=== PATIENT | female | born 1995 | race Caucasian/White ===

== ENCOUNTER 2019-09-17 12:33 | Emergency (ER) | payer OTHER ==
[~2019-09-17] VITALS: Ht 160 cm; Wt 64.4 kg
[2019-09-17] MEDS ORDERED: NIVA-PLUS TABL1 EACH (12:56)
== END 2019-09-17 18:14 | disposition home or self-care (01) ==
LOC: ER 12:33
DX: O26.891 Other specified pregnancy related conditions, first trimester (principal); K52.89 Other specified noninfective gastroenteritis and colitis; O21.8 Other vomiting complicating pregnancy; O36.80X1 Pregnancy with inconclusive fetal viability, fetus 1

== ENCOUNTER 2019-12-10 15:33 | Emergency (ER) | payer OTHER ==
[~2019-12-10] VITALS: Ht 160 cm; Wt 68.0 kg
[~2019-12-10 15:33] MED LIST: NIVA-PLUS TABL1 EACH
== END 2019-12-10 19:33 | disposition home or self-care (01) ==
LOC: ER 15:33
DX: O26.892 Other specified pregnancy related conditions, second trimester (principal); R10.2 Pelvic and perineal pain; Z34.02 Encounter for supervision of normal first pregnancy, second trimester

== ENCOUNTER 2020-03-07 17:14 | Outpatient (CLI) | payer OTHER ==
[2020-03-07] MEDS ORDERED: ACIDO FOLICO (18:21)
== END 2020-03-08 10:35 | disposition home or self-care (01) ==
LOC: OBS/DEL 17:14
PROVIDERS: ATTEND Obstetrics & Gynecology
DX: O23.43 Unspecified infection of urinary tract in pregnancy, third trimester (principal); O26.893 Other specified pregnancy related conditions, third trimester; R10.2 Pelvic and perineal pain

== ENCOUNTER → 2020-03-22 | Emergency (ER) | payer OTHER ==
[~2020-03-22] MED LIST changes: +ACIDO FOLICO
== END | disposition left against medical advice (07) ==
LOC: ER 22:29
DX: Z53.20 Procedure and treatment not carried out because of patient's decision for unspecified reasons (principal)

== ENCOUNTER 2020-04-02 14:26 | Outpatient (CLI) | payer OTHER | END 2020-04-02 20:45 | disposition home or self-care (01) | LOC: OBS/DEL 14:26 | PROVIDERS: ATTEND Obstetrics & Gynecology | DX: O26.893 Other specified pregnancy related conditions, third trimester (principal); R10.2 Pelvic and perineal pain ==

== ENCOUNTER 2020-04-20 09:45 | Inpatient (IN) | payer OTHER ==
[~2020-04-20] VITALS: Ht 160 cm; Wt 3.6 kg
== END 2020-04-29 18:34 | disposition home or self-care (01) | DRG 785 ==
LOC: OB/GYN 04-27 07:00 → O/R 04-27 10:11 → OB/GYN 04-27 18:58
PROVIDERS: ADMIT Obstetrics & Gynecology; ATTEND Obstetrics & Gynecology
PROC: 0UB70ZZ Excision of Bilateral Fallopian Tubes, Open Approach (ICD-10-PCS; 2020-04-27)
PROC: 4A1HXFZ Monitoring of Products of Conception, Cardiac Rhythm, External Approach (ICD-10-PCS; 2020-04-27)
PROC: 10D00Z1 Extraction of Products of Conception, Low, Open Approach (ICD-10-PCS; principal; 2020-04-27 07:00)
DX: O34.211 Maternal care for low transverse scar from previous cesarean delivery (principal); Z30.2 Encounter for sterilization; Z3A.39 39 weeks gestation of pregnancy; Z37.0 Single live birth